=== PATIENT | female | born 1945 | race Caucasian/White ===

== ENCOUNTER 2020-11-01 10:23 | Emergency (ER) | payer OTHER ==
[~2020-11-01] VITALS: Ht 157.5 cm; Wt 61.7 kg
[~2020-11-01 10:23] MED LIST: COZAAR 50 MG TA50 M2 PO; FLEXERIL PO; IBUPROFEN 200200 M1 PO; LEVOTHYROXINE0.05 MG PO; MEDROLDOSEPACK PO
[2020-11-01 11:51] LABS: ABSOLUTE LYMPHOCYTES 1.3 thou/uL (0.8-5.3); ABSOLUTE MONOCYTES 0.8 thou/uL (0.0-1.2); ABSOLUTE NEUTROPHILS 9.1 thou/uL (1.6-8.1); BASOPHILS 0.2 %; EOSINOPHILS 0.4 %; HEMATOCRIT 40.6 % (37.0-47.0); HEMOGLOBIN 14.1 gm/dL (12.0-15.0); LYMPHOCYTES 11.3 %; MCH 28.5 pg (26.0-34.0); MCHC 34.6 g/dL (28.0-37.0); MCV 82.1 fL (80.0-100.0); MONOCYTES 6.9 %; MPV 7.7 fl. (7.2-11.1); NUCLEATED RBCS 0 /100WBC; PLATELET COUNT* 330 thou/uL (150-400); POLYS 81.2 %; RBC 4.94 mil/uL (4.20-5.00); RDW-CV 13.4 % (10.5-14.5); WBC 11.2 thou/uL (4.0-11.0)
[2020-11-01 11:56] LABS: CALCIUM 8.6 mg/dL (8.5-10.1); CREATININE 1.9 mg/dL (0.6-1.3); POTASSIUM 3.6 mmol/L (3.5-5.1)
[2020-11-01 12:00] LABS: ALBUMIN 4.2 g/dL (3.4-5.0); TOTAL BILIRUBIN 0.4 mg/dL (<0.1-1.0); TOTAL PROTEIN 7.7 g/dL (6.4-8.2)
[2020-11-01 12:09] LABS: URINE BLOOD NEGATIVE (Negative); URINE CLARITY CLEAR; URINE COLOR YELLOW; URINE GLUCOSE-RANDOM NEGATIVE (Negative); URINE KETONES 1+ (Negative); URINE LEUKOCYTES-REFLEX NEGATIVE (Negative); URINE NITRITE-REFLEX NEGATIVE (Negative); URINE PROTEIN TRACE (Negative); URINE SPECIFIC GRAVITY >= 1.030 (1.005-1.030); URINE UROBILINOGEN 0.2 E.U./dl (0.2-1.0)
[2020-11-01 12:12] LABS: ICTOTEST (BILI CONFIRMATORY) Positive (Negative); URINE BILIRUBIN 2+ (Negative)
[2020-11-01] MEDS ORDERED: ZOFRAN ODT4 MG DISSOLVE (13:10)
[2020-11-01 13:19] VITALS: BP 122/54
--- NOTE | 2020-11-01 15:45 | EKG ---
[place] [address] ELECTROCARDIOGRAM REPORT Name: JAKE MOLINA Room: [facility]#: [id number] Admission: 11/01/20 Attend Phys: Discharge: 11/01/20 Date of : 41 Date of Service: 11/01/20 1155 Report #: [id number] THIS REPORT FOR: //name// [facility] ED Test Date: 2020-11-01 Test Time: 11:55:57 Pat Name: JAKE MOLINA Department: Room: Gender: F [employer] Worker: [facility] : 1945 Requested By: Lenard Carrillo Order Number: [id number] MD: Eric Rothman Measurements Intervals [place] Rate: 76 P: 69 MA: 128 QRS: 46 QRSD: 94 T: 57 QT: 404 QTc: 455 Interpretive Statements Sinus rhythm Consider left atrial enlargement Minimal ST elevation, inferior leads No previous ECG available for comparison Electronically Signed On 11-01-2020 15:45:30 CDT by Eric Rothman [email or web address] <ELECTRONICALLY SIGNED> By: Eric Rothman MD, [facility] 11/01/20 1545 1155 1155 Eric Rothman MD, FAC /EPI
== END 2020-11-01 13:20 | disposition home or self-care (01) ==
LOC: M.ERS 10:23
PROVIDERS: Family Medicine
DX: R11.2 Nausea with vomiting, unspecified (principal); R19.7 Diarrhea, unspecified; R63.0 Anorexia; E11.9 Type 2 diabetes mellitus without complications; Z20.822 Contact with and (suspected) exposure to COVID-19; Z79.2 Long term (current) use of antibiotics